=== PATIENT | male | born 1955 | race African-American/Black ===

== ENCOUNTER 2023-12-02 19:46 | Inpatient (IN) | payer MEDICARE, OTHER ==
[~2023-12-02] VITALS: Ht 170.2 cm; Wt 72.3 kg
[2023-12-02 21:33] LABS: BASOPHILS % 0.3 % (0.0-2.0); EOSINOPHILS % 1.2 % (0.0-5.0); HEMATOCRIT. 42.1 % (42.0-52.0); HEMOGLOBIN. 14.5 g/dL (14.0-18.0); LYMPHOCYTES % 28.4 % (20.0-50.0); MEAN CORPUSCULAR HEMOGLOBIN 34.3 pg (28.0-32.0); MEAN CORPUSCULAR HGB CONC 34.4 g/dL (31.0-37.0); MEAN CORPUSCULAR VOLUME 99.7 fL (80.0-94.0); MEAN PLATELET VOLUME 7.9 fl (7.4-10.4); MONOCYTES % 6.8 % (2.0-8.0); NEUTROPHILS % 63.3 % (40.0-76.0); PLATELET 290 x1000/uL (130-400); RED BLOOD CELL COUNT 4.23 mill/uL (4.7-6.1); RED CELL DISTRIBUTION WIDTH 12.8 % (11.6-14.6); WHITE BLOOD COUNT 7.7 x1000/uL (4.5-11.0)
[2023-12-02 21:38] LABS: CHLORIDE 105 mEq/L (98-107); POTASSIUM 3.1 mEq/L (3.5-5.1); SODIUM 139 mEq/L (136-145)
[2023-12-02 21:39] LABS: CARBON DIOXIDE 24 mEq/L (21-32)
[2023-12-02 21:40] LABS: CALCIUM 9.4 mg/dL (8.7-10.4)
[2023-12-02 21:44] LABS: CREATININE 1.1 mg/dL (0.6-1.3); GLUCOSE 102 mg/dL (70-105); PROTHROMBIN TIME 10.8 sec (9.6-11.0)
[2023-12-02 21:45] LABS: ETHANOL BLOOD 76 mg/dL (<10); UREA NITROGEN BLOOD 11 mg/dL (9-23)
[2023-12-02 21:46] LABS: ALANINE AMINOTRANSFERASE 19 IU/L (10-49); ALBUMIN 4.8 g/dL (3.2-4.8); ASPARTATE AMINOTRANSFERASE 27 IU/L (<34)
[2023-12-02 21:47] LABS: BILIRUBIN TOTAL 0.3 mg/dL (0.1-1.0); PROTEIN TOTAL 7.7 g/dL (6.0-8.3)
[2023-12-03] MEDS: IOHEXOL-350 100 ML BOTTLE ONE (01:48)
[2023-12-03 02:40] VITALS: BP 155/92; PULSE 74; RESP 17; TEMP 97.7
[2023-12-03] MEDS ORDERED: FOLI-43 PO (02:55)
[2023-12-03] MEDS ORDERED: RISP4TAB93 PO (02:55)
[2023-12-03] MEDS ORDERED: MIRT45TA83 PO (02:55)
[2023-12-03] MEDS ORDERED: NAPR-681 PO (02:55)
[2023-12-03] MEDS ORDERED: ATOR20TA65 PO (02:55)
[2023-12-03] MEDS ORDERED: GABA-529 PO (02:55)
[2023-12-03] MEDS ORDERED: PRAZ2CAP2 PO (02:55)
[2023-12-03] MEDS ORDERED: SERT25TA74 (02:55)
[2023-12-03] MEDS ORDERED: LISI40TA13 PO (02:55)
[2023-12-03 04:00] VITALS: BP 188/82; PULSE 71; RESP 16; TEMP 97.5
[2023-12-03] MEDS ORDERED: CHLORDIAZEPOXIDE 25MG CAPSULE PO PRN ×4 (04:45→05:00)
[2023-12-03] MEDS ORDERED: ACETAMINOPHEN 325MG TABLET PO PRN (04:45)
[2023-12-03] MEDS: POTASSIUM CHLORIDE 20MEQ TABLET SR PO NR (05:15)
[2023-12-03] MEDS: CLONIDINE 0.1MG TABLET PO PRN (05:39)
[2023-12-03 06:46] LABS: CLARITY URINE CLEAR (CLEAR); COLOR URINE YELLOW (YELLOW); GLUCOSE URINE NEGATIVE (NEGATIVE); KETONES URINE NEGATIVE (NEGATIVE); LEUKOCYTE ESTERASE URINE NEGATIVE (NEGATIVE); NITRITE URINE NEGATIVE (NEGATIVE); OCCULT BLOOD URINE NEGATIVE (NEGATIVE); PROTEIN URINE NEGATIVE (NEGATIVE); SPECIFIC GRAVITY URINE 1.044 (1.005-1.030); UROBILINOGEN URINE 0.2 E.U./dL (0.2-1.0)
[2023-12-03 06:55] LABS: *AMPHETAMINES SCREEN URINE NEGATIVE (NEGATIVE); *BARBITURATES SCREEN URINE NEGATIVE (NEGATIVE); *BENZODIAZEPINES SCREEN URINE NEGATIVE (NEGATIVE); *COCAINE SCREEN URINE PRESUMPTIVE POSITIVE (NEGATIVE); CANNABINOID URINE SCREEN PRESUMPTIVE POSITIVE (NEGATIVE); ECSTASY MDMA SCREEN URINE NEGATIVE (NEGATIVE); METHADONE URINE SCREEN NEGATIVE (NEGATIVE); OPIATES URINE SCREEN NEGATIVE (NEGATIVE); PHENCYCLIDINE URINE SCREEN NEGATIVE (NEGATIVE)
[2023-12-03 07:06] LABS: BASOPHILS % 0.2 % (0.0-2.0); EOSINOPHILS % 0.1 % (0.0-5.0); HEMATOCRIT. 41.2 % (42.0-52.0); HEMOGLOBIN. 14.5 g/dL (14.0-18.0); LYMPHOCYTES % 16.6 % (20.0-50.0); MEAN CORPUSCULAR HEMOGLOBIN 34.4 pg (28.0-32.0); MEAN CORPUSCULAR HGB CONC 35.4 g/dL (31.0-37.0); MEAN CORPUSCULAR VOLUME 97.3 fL (80.0-94.0); MEAN PLATELET VOLUME 8.8 fl (7.4-10.4); MONOCYTES % 5.8 % (2.0-8.0); NEUTROPHILS % 77.3 % (40.0-76.0); PLATELET 295 x1000/uL (130-400); RED BLOOD CELL COUNT 4.23 mill/uL (4.7-6.1); RED CELL DISTRIBUTION WIDTH 13.1 % (11.6-14.6); WHITE BLOOD COUNT 9.6 x1000/uL (4.5-11.0)
[2023-12-03 07:21] LABS: CARBON DIOXIDE 22 mEq/L (21-32); CHLORIDE 105 mEq/L (98-107); POTASSIUM 3.8 mEq/L (3.5-5.1); SODIUM 138 mEq/L (136-145)
[2023-12-03 07:23] LABS: CALCIUM 9.6 mg/dL (8.7-10.4)
[2023-12-03 07:27] LABS: CREATININE 0.9 mg/dL (0.6-1.3); UREA NITROGEN BLOOD 10 mg/dL (9-23)
[2023-12-03 07:35] LABS: GLUCOSE 99 mg/dL (70-105)
[2023-12-03 07:52] LABS: HEPATITIS B SURFACE ANTIGEN NEGATIVE (Negative)
[2023-12-03 08:00] VITALS: BP 189/90; PULSE 63; RESP 20; TEMP 98.2
[2023-12-03 08:14] LABS: HEPATITIS C AB NON REACTIVE (Neg) (Negative)
[2023-12-03] MEDS: RISPERIDONE 1MG TABLET PO SCH (09:48)
[2023-12-03] MEDS: MULTIVITAMINS,THER W-MINERALS TABLET PO SCH (09:48)
[2023-12-03] MEDS: SERTRALINE HCL 25MG TABLET PO SCH (09:48)
[2023-12-03] MEDS: LISINOPRIL 40MG TABLET PO SCH (09:50)
[2023-12-03] MEDS: FOLIC ACID 1MG TABLET PO SCH (09:51)
[2023-12-03] MEDS: GABAPENTIN 100MG CAPSULE PO SCH (09:56)
[2023-12-03] MEDS: ASPIRIN 81MG TABLET PO SCH (11:58)
[2023-12-03] MEDS: CLOPIDOGREL 75MG TABLET PO SCH (11:58)
[2023-12-03 12:00] VITALS: BP 110/77; PULSE 67; RESP 20; TEMP 97.6
[2023-12-03] MEDS ORDERED: NALOXONE HCL 0.4MG/ML VIAL IV PRN (15:30)
[2023-12-03 16:00] VITALS: BP 114/74; PULSE 63; RESP 20; TEMP 98
[2023-12-03 20:00] VITALS: BP 119/78; PULSE 94; RESP 17; TEMP 98
[2023-12-03] MEDS: ATORVASTATIN CALCIUM 40MG TABLET PO SCH (21:00)
[2023-12-03] MEDS ORDERED: RISPERIDONE PO SCH (21:00)
[2023-12-03] MEDS ORDERED: ATORVASTATIN CALCIUM 20MG TABLET PO SCH (21:00)
[2023-12-03] MEDS: PRAZOSIN HCL 1MG CAPSULE PO SCH (21:00)
[2023-12-03] MEDS: MIRTAZAPINE 15MG TABLET PO SCH (21:00)
[2023-12-03] MEDS ORDERED: MEDICATION NOT ON FORMULARY EA (Mirtazapine 1 TAB) PO SCH (21:00)
[2023-12-03 22:07] LABS: BASOPHILS % 0.3 % (0.0-2.0); EOSINOPHILS % 0.3 % (0.0-5.0); HEMATOCRIT. 40.8 % (42.0-52.0); LYMPHOCYTES % 24.8 % (20.0-50.0); MEAN CORPUSCULAR HGB CONC 34.4 g/dL (31.0-37.0); MEAN CORPUSCULAR VOLUME 98.8 fL (80.0-94.0); MEAN PLATELET VOLUME 8.1 fl (7.4-10.4); MONOCYTES % 8.6 % (2.0-8.0); PLATELET 287 x1000/uL (130-400); RED BLOOD CELL COUNT 4.13 mill/uL (4.7-6.1); RED CELL DISTRIBUTION WIDTH 13.5 % (11.6-14.6); WHITE BLOOD COUNT 7.4 x1000/uL (4.5-11.0)
[2023-12-03 22:13] LABS: CHLORIDE 106 mEq/L (98-107); POTASSIUM 3.6 mEq/L (3.5-5.1); SODIUM 137 mEq/L (136-145)
[2023-12-03 22:14] LABS: CARBON DIOXIDE 22 mEq/L (21-32)
[2023-12-03 22:15] LABS: CALCIUM 9.2 mg/dL (8.7-10.4)
[2023-12-03 22:16] LABS: PROTHROMBIN TIME 10.7 sec (9.6-11.0)
[2023-12-03 22:19] LABS: GLUCOSE 142 mg/dL (70-105)
[2023-12-03 22:20] LABS: LDL CHOLESTEROL 76 mg/dL (5-100); TRIGLYCERIDE 97 mg/dL (0-150); UREA NITROGEN BLOOD 11 mg/dL (9-23)
[2023-12-03 22:22] LABS: CHOLESTEROL 166 mg/dL (<200); HDL CHOLESTEROL 77 mg/dL (>55)
[2023-12-04] VITALS: BP 139/88; PULSE 90; RESP 17; TEMP 98.1
[2023-12-04 00:40] LABS: BG BASE EXCESS -1.6 mmol/L (-2.0-2.0); BG CARBOXYHEMOGLOBIN 0.3 % (0.5-1.5); BG DEOXYHEMOGLOBIN 4.1 % (0.0-5.0); BG FRACTION INSPIRED OXYGEN 21; BG OXYGEN SATURATION 95.9 % (92.0-98.5); BG OXYHEMOGLOBIN 95.6 % (94.0-97.0); BG PCO2 29.9 mmHg (35.0-45.0); BG PH 7.465 (7.350-7.450); BG PO2 80.9 mmHg (75.0-100.0); BG SAMPLE SITE LEFT RADIAL; BG TOTAL HEMOGLOBIN 14.3 g/dL (12.0-18.0); BG VENT MODE ROOM AIR
[2023-12-04 04:00] VITALS: BP 148/78; PULSE 99; RESP 17; TEMP 98
[2023-12-04 05:39] LABS: BASOPHILS % 0.3 % (0.0-2.0); EOSINOPHILS % 0.1 % (0.0-5.0); HEMATOCRIT. 42.5 % (42.0-52.0); HEMOGLOBIN. 14.4 g/dL (14.0-18.0); MEAN CORPUSCULAR HEMOGLOBIN 33.2 pg (28.0-32.0); MEAN CORPUSCULAR HGB CONC 33.9 g/dL (31.0-37.0); MEAN PLATELET VOLUME 8.5 fl (7.4-10.4); MONOCYTES % 9.1 % (2.0-8.0); NEUTROPHILS % 60.5 % (40.0-76.0); PLATELET 278 x1000/uL (130-400); RED BLOOD CELL COUNT 4.34 mill/uL (4.7-6.1); RED CELL DISTRIBUTION WIDTH 13.6 % (11.6-14.6); WHITE BLOOD COUNT 7.9 x1000/uL (4.5-11.0)
[2023-12-04 05:59] LABS: CALCIUM 9.3 mg/dL (8.7-10.4); CHLORIDE 106 mEq/L (98-107); POTASSIUM 3.9 mEq/L (3.5-5.1); SODIUM 139 mEq/L (136-145)
[2023-12-04 06:00] LABS: CARBON DIOXIDE 22 mEq/L (21-32)
[2023-12-04 06:05] LABS: CREATININE 1.1 mg/dL (0.6-1.3); GLUCOSE 111 mg/dL (70-105); UREA NITROGEN BLOOD 11 mg/dL (9-23)
[2023-12-04 08:00] VITALS: BP 165/91; PULSE 84; RESP 18; TEMP 98.1
[2023-12-04 12:00] VITALS: BP 163/95; PULSE 85; RESP 18; TEMP 96.8
[2023-12-04] MEDS ORDERED: IOHEXOL-350 100 ML BOTTLE ONE (13:07)
[2023-12-04] MEDS: SODIUM CHLORIDE 0.9% 1,000 ML IV SCH (13:45)
[2023-12-04 16:00] VITALS: BP 159/102; PULSE 98; RESP 18; TEMP 97
[2023-12-04 20:00] VITALS: BP 159/88; PULSE 74; RESP 19; TEMP 98.6
[2023-12-05] VITALS: BP 139/88; PULSE 70; RESP 19; TEMP 98.5
[2023-12-05 04:00] VITALS: BP 143/93; PULSE 85; RESP 19; TEMP 98.8
[2023-12-05 08:00] VITALS: BP 134/102; PULSE 84; RESP 20; TEMP 98
[2023-12-05] MEDS: THIAMINE HCL 100MG TABLET PO SCH (08:22)
[2023-12-05] MEDS ORDERED: THIAMINE HCL 100MG TABLET PO SCH (09:00)
[2023-12-05] MEDS ORDERED: FOLIC ACID 1MG TABLET PO SCH (09:00)
[2023-12-05 11:36] VITALS: BP 140/95; PULSE 125; RESP 19; TEMP 98
[2023-12-05 15:44] VITALS: BP 142/92; PULSE 94; RESP 20; TEMP 98.3
[2023-12-05 20:27] VITALS: BP 125/82; PULSE 91; RESP 20; TEMP 98.1
[2023-12-06 00:07] VITALS: BP 162/89; PULSE 87; RESP 20; TEMP 99
[2023-12-06 04:00] VITALS: BP 110/77; PULSE 79; RESP 20; TEMP 96.8
[2023-12-06 07:43] VITALS: BP 157/91; PULSE 74; RESP 18; TEMP 98
[2023-12-06 11:59] VITALS: BP 115/77; PULSE 80; RESP 20; TEMP 98
[2023-12-06 15:59] VITALS: BP 145/91; PULSE 72; RESP 18; TEMP 98.3
[2023-12-06] MEDS: CARBAMIDE PEROXIDE 6.5% OTIC SOLN 15ML EACH EAR SCH (16:20)
[2023-12-06 20:25] VITALS: BP 158/92; PULSE 76; RESP 20; TEMP 99.1
[2023-12-07] VITALS (7 sets, daily range): BP systolic 123–169; BP diastolic 66–99; PULSE 75–90; RESP 18–20; TEMP 97.7–98.9
[2023-12-07] MEDS: AMLODIPINE 2.5MG TABLET PO SCH (12:51)
[2023-12-07 19:06] LABS: BASOPHILS % 0.5 % (0.0-2.0); EOSINOPHILS % 2.3 % (0.0-5.0); HEMATOCRIT. 35.8 % (42.0-52.0); HEMOGLOBIN. 12.2 g/dL (14.0-18.0); LYMPHOCYTES % 31.7 % (20.0-50.0); MEAN CORPUSCULAR HEMOGLOBIN 33.5 pg (28.0-32.0); MEAN CORPUSCULAR VOLUME 98.5 fL (80.0-94.0); MEAN PLATELET VOLUME 8.5 fl (7.4-10.4); MONOCYTES % 9.7 % (2.0-8.0); NEUTROPHILS % 55.8 % (40.0-76.0); PLATELET 232 x1000/uL (130-400); RED BLOOD CELL COUNT 3.63 mill/uL (4.7-6.1); RED CELL DISTRIBUTION WIDTH 12.9 % (11.6-14.6); WHITE BLOOD COUNT 5.6 x1000/uL (4.5-11.0)
[2023-12-07 19:13] LABS: CARBON DIOXIDE 23 mEq/L (21-32); CHLORIDE 111 mEq/L (98-107); POTASSIUM 3.4 mEq/L (3.5-5.1); SODIUM 140 mEq/L (136-145)
[2023-12-07 19:19] LABS: CREATININE 0.9 mg/dL (0.6-1.3); GLUCOSE 122 mg/dL (70-105); UREA NITROGEN BLOOD 10 mg/dL (9-23)
[2023-12-07] MEDS: HYDROCODONE/ACETAMINOPHEN 5/325MG TABLET PO PRN (22:05)
[2023-12-08] VITALS (8 sets, daily range): BP systolic 129–186; BP diastolic 77–102; PULSE 65–107; RESP 18–20; TEMP 97.2–98.2
[2023-12-08] MEDS: HYDRALAZINE 20MG/ML VIAL IV PRN (04:54)
[2023-12-08] MEDS: AMLODIPINE 2.5MG TABLET PO NR (11:47)
[2023-12-08] MEDS: ACETAMINOPHEN 325MG TABLET PO PRN (16:03)
[2023-12-08] MEDS: LORAZEPAM 1MG TABLET PO PRN (21:08)
[2023-12-09] VITALS (7 sets, daily range): BP systolic 110–150; BP diastolic 63–93; PULSE 86–98; RESP 18–20; TEMP 97.3–98.3
[2023-12-09] MEDS: AMLODIPINE 5MG TABLET PO SCH (09:08)
[2023-12-10 04:00] VITALS: BP 102/65; PULSE 88; RESP 16; TEMP 98
[2023-12-10 07:47] VITALS: BP 129/84; PULSE 77; RESP 20; TEMP 98.3
[2023-12-10 11:39] VITALS: BP 138/80; PULSE 100; RESP 20; TEMP 98.4
[2023-12-10 15:53] VITALS: BP 108/70; PULSE 88; RESP 20; TEMP 97.9
[2023-12-10 20:00] VITALS: BP 139/84; PULSE 90; RESP 20; TEMP 99
[2023-12-11] VITALS: BP 118/79; PULSE 82; RESP 20; TEMP 98.7
[2023-12-11 04:00] VITALS: BP 124/76; PULSE 81; RESP 20; TEMP 98.6
[2023-12-11 07:44] VITALS: BP 147/73; PULSE 101; RESP 20; TEMP 98.2
[2023-12-11 11:55] VITALS: BP 114/68; PULSE 77; RESP 20; TEMP 97.9
[2023-12-11 15:34] VITALS: BP 125/81; PULSE 87; RESP 20; TEMP 98.3
[2023-12-11 20:00] VITALS: BP 123/81; PULSE 88; RESP 20; TEMP 99.1
[2023-12-12 00:13] VITALS: BP 105/48; PULSE 82; RESP 20; TEMP 98.8
[2023-12-12 04:00] VITALS: BP 100/60; PULSE 78; RESP 18; TEMP 98.4
[2023-12-12 08:00] VITALS: BP 133/100; PULSE 90; RESP 18; TEMP 97.7
[2023-12-12 12:00] VITALS: BP 92/60; PULSE 77; RESP 18; TEMP 97.1
[2023-12-12 16:00] VITALS: BP 110/79; PULSE 82; RESP 18; TEMP 97
[2023-12-12 20:00] VITALS: BP 120/79; PULSE 82; RESP 20; TEMP 98.4
[2023-12-13] VITALS: BP 106/59; PULSE 89; RESP 20; TEMP 98.3
[2023-12-13 04:00] VITALS: BP 104/66; PULSE 88; RESP 18; TEMP 99.7
[2023-12-13 08:00] VITALS: BP 140/90; PULSE 86; RESP 16; TEMP 97.3
[2023-12-13 12:00] VITALS: BP 144/94; PULSE 89; RESP 18; TEMP 97.2
[2023-12-13 16:00] VITALS: BP 117/79; PULSE 80; RESP 18; TEMP 98.1
[2023-12-13 20:00] VITALS: BP 123/81; PULSE 89; RESP 20; TEMP 98.1
[2023-12-14] VITALS: BP 111/66; PULSE 74; RESP 18; TEMP 98.4
[2023-12-14 04:00] VITALS: BP 99/60; PULSE 80; RESP 18; TEMP 98.8
[2023-12-14 08:00] VITALS: BP 115/71; PULSE 80; RESP 20; TEMP 97
[2023-12-14 12:00] VITALS: BP 120/78; PULSE 88; RESP 20; TEMP 97.3
[2023-12-14 16:00] VITALS: BP 114/73; PULSE 88; RESP 20; TEMP 97.3
[2023-12-14 20:00] VITALS: BP 109/79; PULSE 89; RESP 20; TEMP 97.8
[2023-12-15] VITALS: BP 104/45; PULSE 83; RESP 20; TEMP 97.5
[2023-12-15 04:10] VITALS: BP 112/50; PULSE 90; RESP 19; TEMP 97.5
[2023-12-15 08:03] VITALS: BP 117/79; PULSE 84; RESP 20; TEMP 98.3
[2023-12-15 12:05] VITALS: BP 91/53; PULSE 83; RESP 18; TEMP 97.9
[2023-12-15 15:49] VITALS: BP 111/70; PULSE 72; RESP 18; TEMP 98
[2023-12-15 20:00] VITALS: BP 121/82; PULSE 88; RESP 20; TEMP 97.7
[2023-12-16] VITALS: BP 122/78; PULSE 84; RESP 20; TEMP 97.7
[2023-12-16 04:00] VITALS: BP 129/80; PULSE 93; RESP 20; TEMP 97.8
[2023-12-16 08:06] VITALS: BP 107/63; PULSE 87; RESP 20; TEMP 98.1
[2023-12-16 11:49] VITALS: BP 104/59; PULSE 79; RESP 18; TEMP 97.9
[2023-12-16 16:00] VITALS: BP 109/64; PULSE 68; RESP 20; TEMP 98.9
[2023-12-16] MEDS ORDERED: HYDRALAZINE 10 MG in SODIUM CHLORIDE 0.9% 49.5 ML IV PRN (16:00)
[2023-12-16 18:21] VITALS: BP 109/64; PULSE 68; TEMP 97.9; O2SAT 97
== END 2023-12-16 22:57 | DRG 45 ==
LOC: ER 19:46 → 7WST 12-03 00:17 → EDBEDREQSVC 12-03 00:20 → EDBEDREQ 12-03 00:20 → EDBEDREQTM 12-03 00:20 → 6WST 12-16 13:10
PROVIDERS: ADMIT Internal Medicine; ATTEND Internal Medicine
DX: I63.511 Cerebral infarction due to unspecified occlusion or stenosis of right middle cerebral artery (principal); G93.40 Encephalopathy, unspecified; R41.4 Neurologic neglect syndrome; H53.462 Homonymous bilateral field defects, left side; R47.01 Aphasia; G81.94 Hemiplegia, unspecified affecting left nondominant side; R47.1 Dysarthria and anarthria; R73.9 Hyperglycemia, unspecified; R53.81 Other malaise; R29.706 NIHSS score 6; F10.129 Alcohol abuse with intoxication, unspecified; I10 Essential (primary) hypertension; F14.129 Cocaine abuse with intoxication, unspecified; R13.10 Dysphagia, unspecified; M48.02 Spinal stenosis, cervical region; H91.93 Unspecified hearing loss, bilateral; V89.2XXA Person injured in unspecified motor-vehicle accident, traffic, initial encounter; Y92.410 Unspecified street and highway as the place of occurrence of the external cause; Z82.49 Family history of ischemic heart disease and other diseases of the circulatory system; Z87.891 Personal history of nicotine dependence
CPT/HCPCS: 36415; 36600; 70496; 70498; 71045; 80048; 80053; 80061; 80305; 80320; 81003; 82375; 82805; 82962; 83036; 84443; 85025; 86705; 87340; 92523; 92610; 93005; 93306; 93970; 97112; 97116; 97162; 97166; 97530; 99291; J0360; J7030; Q9967; G0480